=== PATIENT | male | born 2000 | race Caucasian/White ===

== ENCOUNTER 2021-12-18 04:30 | Emergency (ER) | payer OTHER, SELFPAY ==
[2021-12-18] MEDS ORDERED: Acetaminophen 500 MG TAB ONE (05:33)
[2021-12-18] MEDS ORDERED: Boostrix 0.5 ML (Tdap) VIAL (>/=7 yrs of age) ONE (06:08)
== END 2021-12-18 06:20 | disposition home or self-care (01) ==
LOC: CSHERS 04:30
DX: S80.12XA Contusion of left lower leg, initial encounter (principal); M54.6 Pain in thoracic spine; Z23 Encounter for immunization; F17.290 Nicotine dependence, other tobacco product, uncomplicated; V48.5XXA Car driver injured in noncollision transport accident in traffic accident, initial encounter
CPT/HCPCS: 71045; 72072; 90471; 90715